=== PATIENT | female | born 1985 | race Caucasian/White ===

== ENCOUNTER → 2017-06-11 11:50 | Outpatient (CLI) | payer MEDICAID, SELFPAY ==
[2017-06-16 03:07] LABS: AFP MoM Value 1.18 (.); AFP Value-EIA 34.6 ng/mL (.); Comment Report (.); DIA MoM Value 0.75 (.); DIA Value-EIA 92.27 pg/mL (.); DSR (By Age) 518 (.); DSR (Second Trimester) 5014 (.); Gestat. Age Based On As provided (.); Gestational Age 17.9 WEEKS (.); Insulin Dep Diabetes No (.); Maternal Age At EDD 32.1 YEARS (.); hCG MoM 0.54 (.); hCG Value 10276 mIU/mL (.)
== END ==
PROVIDERS: Visit Provider Obstetrics & Gynecology
DX: O99.89 Other specified diseases and conditions complicating pregnancy, childbirth and the puerperium (principal); R30.0 Dysuria; Z3A.00 Weeks of gestation of pregnancy not specified
CPT/HCPCS: 36415; 82105; 82677; 84702; 86336; 87077; 87086; 87088; 87186

== ENCOUNTER → 2017-08-20 13:16 | Outpatient (CLI) | payer MEDICAID, SELFPAY ==
[2017-08-20 15:47] LABS: Hematocrit 33.9 % (37-47); Hemoglobin 11.1 g/dl (12.0-15.0); Mean Corp Hgb Conc 32.7 g/gl (32-36); Mean Corpuscular Hgb 29.5 pg (27.0-32.0); Mean Corpuscular Volume 90.2 fL (81-99); Mean Platelet Vol. 11.6 fl (6.2-12.0); Platelet Count 179 K/mm3 (150-450); RBC Distribution Width CV 13.5 % (11.6-14.6); RBC Distribution Width SD 44.2 fl (35.1-43.9); Red Blood Count 3.76 M/mm3 (4.2-5.4); White Blood Count 6.5 K/mm3 (4.4-11.0)
[2017-08-20 15:48] LABS: Scan Indicated on CBC? Y/N NO
[2017-08-20 15:55] LABS: Glucose Challenge Gest 1H 50g 151 mg/dL (70-140)
== END ==
PROVIDERS: Visit Provider Obstetrics & Gynecology
DX: Z34.82 Encounter for supervision of other normal pregnancy, second trimester (principal)
CPT/HCPCS: 36415; 82950; 85027

== ENCOUNTER → 2017-08-27 09:57 | Outpatient (CLI) | payer MEDICAID, SELFPAY ==
[2017-08-27 11:24] LABS: Glucose GTT-Gestation. Fasting 94 mg/dL (<105)
[2017-08-27 12:01] LABS: Glucose GTT-Gestational 1 Hr 194 mg/dL (<190)
[2017-08-27 13:02] LABS: Glucose GTT-Gestational 2 Hr 133 mg/dL (<165)
[2017-08-27 14:31] LABS: Glucose GTT-Gestational 3 Hr 53 L (<145)
== END ==
PROVIDERS: Visit Provider Obstetrics & Gynecology
DX: O24.912 Unspecified diabetes mellitus in pregnancy, second trimester (principal); Z3A.00 Weeks of gestation of pregnancy not specified
CPT/HCPCS: 36415; 82951; 82952

== ENCOUNTER 2017-11-06 05:33 | Inpatient (IN) | payer MEDICAID, SELFPAY ==
[2017-11-06] VITALS (15 sets, daily range): BP systolic 104–151; BP diastolic 60–82; PULSE 73–94; RESP 16–20; TEMP 35.8–36.6; O2SAT 95–100; BMI 52.6
[2017-11-06] MEDS: Lactated Ringers 1,000 ML 999 ML IV (05:55)
[2017-11-06 06:18] LABS: Absolute Lymphocyte Count 1.36 X10^3/ul (0.83-4.51); Absolute Neutrophil Count 5.8 X10^3/uL (2.0-7.7); Basophil# 0.02 X10^3/uL; Basophil% 0.3 % (0-1); Eosinophil# 0.05 X10^3/uL; Eosinophils% 0.6 % (0-5); Hematocrit 34.1 % (37-47); Hemoglobin 11.6 g/dl (12.0-15.0); Lymphocyte # 1.36 X10^3/ul (4.0); Lymphocyte % 17.5 % (19-41); Mean Corpuscular Hgb 30.1 pg (27.0-32.0); Mean Corpuscular Volume 88.6 fL (81-99); Monocyte% 6.4 % (0-10); Neutrophil # 5.82 X10^3/uL (2.7-7.7); Neutrophil % 74.9 % (47-70); Platelet Count 162 K/mm3 (150-450); RBC Distribution Width CV 13.9 % (11.6-14.6); RBC Distribution Width SD 44.5 fl (35.1-43.9); Red Blood Count 3.85 M/mm3 (4.2-5.4); White Blood Count 7.8 K/mm3 (4.4-11.0)
[2017-11-06 06:19] LABS: POSITIVE COUNT NO; POSITIVE DIFFERENTIAL NO; POSITIVE MORPHOLOGY NO
[2017-11-06 06:49] LABS: Partial Thromboplast Time 27.7 Seconds (24.1-36.2)
[2017-11-06] MEDS: Lactated Ringers 1,000 ML 150 ML IV (06:55)
[2017-11-06] MEDS: Sodium Citrate/Citric Acid 30 ML UDC PO (07:04)
--- NOTE | 2017-11-06 07:13 | PCM.DCCSEC ---
Discharge Diet: No Restrictions Discharge Activity: May not drive while taking narcotic pain medications., May Shower, May Take a Tub Bath May resume sexual activity in: 4-6 weeks Lifting Restrictions: 20 pounds Additional Activity Instructions:: Nothing in the vagina for 4-6 weeks. You may return to work/school in 6 weeks. Change Dressing in (Days):: 4 Remove Dressing in (days):: 4 Cleanse incision/area with: Soap & Water, Keep Dressing Clean & Dry Additional Instructions: If you experience any of the following, contact your healthcare provider. Bleeding that soaks a pad every hour for 2 hours Fever 100.4 or higher Unrelieved incision or abdominal pain Swelling, redness, discharge or bleeding from your incision Problems urinating (including inability to urinate or burning while urinating). Visual changes Severe headache Flu-like symptoms Pain or redness in one of both of your breasts Pain, warmth, tenderness or swelling in your legs, especially the calf area Frequent nausea and vomiting Symptoms of depression or anxiety If you experience any of the following, call 911 or go to the nearest Emergency Room. Chest pain Problems breathing Seizure activity Partial or complete paralysis of a body part, slurred speech, weakness or drooping of the face, or a sudden inability to walk or hold your balance Allergies/Adverse Reactions: Allergies paper tape Adverse Reaction (Mild, Uncoded 10/30/17 11:22) Rash adhesive tape Medications to take at Discharge Docusate Sodium [Colace] 100 mg PO BID PRN #30 cap 11/06/17 Naproxen [Naprosyn] 250 mg PO TID PRN #30 tab 11/06/17 Oxycodone [Oxyir] 5 - 10 mg PO Q6H PRN PRN 7 Days #28 tablet 11/06/17 The following prescriptions were given: Oxycodone [Oxyir] 5 - 10 mg PO Q6H PRN PRN 7 Days #28 tablet PRN Reason: Mod-Severe Pain (-01/30) Docusate Sodium [Colace] 100 mg PO BID PRN #30 cap PRN Reason: Constipation Naproxen [Naprosyn] 250 mg PO TID PRN #30 tab PRN Reason: Mild-Mod Pain (-08/30) Follow-Up: Call to make an appointment with your doctor for an incision check in 1-2 weeks. You will also need a 6 week post- follow up appointment. Test results from this visit will be discussed in further detail at your follow-up appointment, if applicable. Please Follow Up With: Devika Cloud MD - [phone] When: Call to make an appointment for an incision check in 2 weeks. Primary Care Physician: Care Physician,No Primary [Primary Care Provider] -
[2017-11-06] MEDS: Cefazolin 2 GM in 0.9% Normal Saline 100 ML IV (07:16)
--- NOTE | 2017-11-06 07:19 | DCINST_ITS ---
Discharge Diet: No Restrictions Discharge Activity: May not drive while taking narcotic pain medications., May Shower, May Take a Tub Bath May resume sexual activity in: 4-6 weeks Lifting Restrictions: 20 pounds Additional Activity Instructions:: Nothing in the vagina for 4-6 weeks. You may return to work/school in 6 weeks. Change Dressing in (Days):: 4 Remove Dressing in (days):: 4 Cleanse incision/area with: Soap & Water, Keep Dressing Clean & Dry Additional Instructions: If you experience any of the following, contact your healthcare provider. * Bleeding that soaks a pad every hour for 2 hours * Fever 100.4 or higher * Unrelieved incision or abdominal pain * Swelling, redness, discharge or bleeding from your incision * Problems urinating (including inability to urinate or burning while urinating) . * Visual changes * Severe headache * Flu-like symptoms * Pain or redness in one of both of your breasts * Pain, warmth, tenderness or swelling in your legs, especially the calf area * Frequent nausea and vomiting * Symptoms of depression or anxiety If you experience any of the following, call 911 or go to the nearest Emergency Room. * Chest pain * Problems breathing * Seizure activity * Partial or complete paralysis of a body part, slurred speech, weakness or drooping of the face, or a sudden inability to walk or hold your balance Allergies/Adverse Reactions: Allergies paper tape Adverse Reaction (Mild, Uncoded 10/30/17 11:22) Rash adhesive tape Medications to take at Discharge Docusate Sodium [Colace] 100 mg PO BID PRN #30 cap 11/06/17 Naproxen [Naprosyn] 250 mg PO TID PRN #30 tab 11/06/17 Oxycodone [Oxyir] 5 - 10 mg PO Q6H PRN PRN 7 Days #28 tablet 11/06/17 The following prescriptions were given: Oxycodone [Oxyir] 5 - 10 mg PO Q6H PRN PRN 7 Days #28 tablet PRN Reason: Mod-Severe Pain () Docusate Sodium [Colace] 100 mg PO BID PRN #30 cap PRN Reason: Constipation Naproxen [Naprosyn] 250 mg PO TID PRN #30 tab PRN Reason: Mild-Mod Pain () Follow-Up: Call to make an appointment with your doctor for an incision check in 1-2 weeks. You will also need a 6 week post- follow up appointment. Test results from this visit will be discussed in further detail at your follow- up appointment, if applicable. Please Follow Up With: Devika Cloud MD - [phone] When: Call to make an appointment for an incision check in 2 weeks. Primary Care Physician: Care Physician,No Primary [Primary Care Provider] -
--- NOTE | 2017-11-06 07:50 | FALS_PTH ---
PATIENT: JAMES PAZ LOC: [facility] U#:[id number] AGE/SX: 32/F ROOM: WP011 RE11/06/[address]: Dr. Devika Cloud MD : 1985 BED: 1 DIS: 11/07/2017 SPEC #: [id number] RECD: 11/06/17 13:48 STATUS: MANAN RERivera #: [id number] CADEN: 11/06/17 07:[address]: Devika Cloud DEPT: SURGICAL PATHOLOGY RECD BY: Luigi Dangelo ENTERED: 11/06/17 13:49 SP TYPE: FALL TUBES OTHR DR: No Primary Care Phys Tissues: Fallopian tube Procedures: Surgery Specimen Level II HEADER OPERATION: Repeat with tubal ligation PRE-OP DIAGNOSIS: Desires sterilization TISSUE SUBMITTED: Fallopian tubes, right tube has suture MICROSCOPIC DIAGNOSIS Right and left fallopian tubes, bilateral partial salpingectomies: Two complete segments of fallopian tubes with no pathologic change. SJ:mark anthony 11/07/17 MICROSCOPIC DESCRIPTION Slides are reviewed. GROSS DESCRIPTION Received is one container labeled with the patient's name and designated suture left fallopian tube. The specimen consists of two fallopian tubes with an average length of 1 cm and has a maximal diameter of 0.6 cm. Right fallopian tube is inked in black ink. No mass lesions are identified. Special Assets Officer sections are submitted in one cassette. / AM:mark anthony 11/06/17 TC:5 CPT: 24848 x2
[2017-11-06] MEDS: Oxytocin 30 units/NS 500 ml 30 UNITS/500 ML IV.SOLN 167 UNITS IV (07:51)
[2017-11-06] MEDS: Lactated Ringers 1,000 ML 100 ML IV ×3 (09:23→22:36)
[2017-11-06] MEDS: HYDROmorphone 1 MG/ML Syringe IV ×6 (10:10→22:34)
[2017-11-06] MEDS: Ketorolac 30 MG/ML Syringe IV ×2 (12:31→18:53)
--- NOTE | 2017-11-06 17:08 | PCM.OP.BLANK ---
Operative Report Date of Procedure: 11/06/17 PROCEDURE: Repeat C section. Bilateral partial salpingectomy Preoperative diagnosis: 39 wk EGA Prior C section, plans repeat Sterilization request Postop diagnosis: 39 wk EGA Prior C section, plans repeat Sterilization request Anesthesia: Spinal BIANCA Jones Surgeon: Devika Cloud MD Residential Sales Consultant: BIANCA Lynch EBL 800 cc Complications: none Drains: Wells draining clear yellow Fluids: replacement LR Findings: At amniotomy, clear amniotic fluid was noted. Peterson viable male in vertex presentation. Apgars 8/9, Baby weight 7# 11 oz. There were normal appearing fallopian tubes and ovaries bilaterally, and a normal appearing uterus . Dense adhesions were noted at the anterior abdominal wall layers. Filmy adhesions along uterus, bladder and lower uterine segment. PATH: bilateral tubal segments and cord gases to Pathology lab Narrative account: After the risks, benefits and alternatives of the procedure were reviewed with the patient, informed consent was obtained. The patient was taken to the Operating room with an IV running, and placed in a seated position on the operating table for placement of the spinal. Once the spinal had been administered, she was briefly frog-legged for Wells catheter placement, and then repositioned to dorsal supine position with leftward displacement of the uterus. Retraction straps were placed on the abdomen to expose the prior incision. She was prepped and draped in the usual sterile fashion. Once the spinal was deemed adequate, a Pfannenstiel skin incision was created using the knife through the prior incision. The incision was carried down to the rectus fascia using the knife. The fascia was nicked in the midline. The fascial incision was extended bilaterally using curved Santiago scissors. The superior aspect of the fascial incision was grasped with Macy clamps and tented up and the underlying rectus abdominal muscles were dissected free. Dense adhesions were noted at this layer. In a similar manner, the inferior aspect of the facial incision was grasped with Macy clamps tented up and the underlying rectus abdominal muscles were dissected free. The rectus abdominis muscles were in the midline and the peritoneum was identified and entered by blunt dissection high in the incision. Using the magnetometer operator's fingertips to guide dissection and Metzenbaum scissors the peritoneal incision was extended superiorly and then inferiorly The peritoneum was stretched laterally and a bladder blade was inserted. Filmy adhesions were taken down along the lower uterine segment and the bladder was pushed down off the uterus. The uterine incision was then created using Metzenbaum scissors. The operators fingertips were used to extend the uterine incision by blunt dissection in a caudad- cephalad orientation . Clear fluid was noted at amniotomy. The buttocks were then delivered through the incision. And the baby was delivered up to the shoulders. The arms were reduced and the head was then delivered by maintaining flexion of the neck. The was then delivered easily onto the abdomen. The OP and nares were bulb suctioned on the abdomen. The cord was clamped x two and cut. And the infant was handed off to the nurse awaiting delivery after briefly showing him to his mother and father. The baby had a spontaneous, vigorous cry. The umbilical cord was doubly clamped. The placenta was then delivered. The uterus was exteriorized and cleared of clots and debris . The uterine incision was repaired with 1 Vicryl in a running locked fashion. The R fallopian tube was grasped with a Rima clamp at a relatively avascular midportion. A window was created in the mesosalpinx with Bovie cautery and the proximal and distal ends of the fallopian tube at this window were tied off. A knuckle of the fallopian tube was tented up and another free tie was placed inferior to the other ties. The segment of the fallopian tube was excised and set aside for pathology review. Bovie cautery was used to cauterize the tubal stumps. The L fallopian tube partial salpingectomy was then performed in a similar manner. At this point the uterus was returned to the abdominal cavity. The gutters were cleared of clots and debris and the incision at the uterus was inspected. A second imbricating layer was then placed, using 1 Monocryl in running nonlocked fashion. Several horizontal mattress stitches of 1 Vicryl and figure of eight stitches were placed along the incision for hemostasis. Bovie cautery was used for hemostasis along the serosa. Thalia was then dusted over the incision. Adequate hemostasis was noted. A FISH retractor was placed into the abdomen to keep bowel and omentum out of harm's way with the rest of the closure There awas brisk bleeding noted from the rectus abdominis muscle body (a rent at that location) high at the R rectus body. This area was oversewn for hemostasis with a figure of eight suture of 1- Vicryl. Excellent hemostasis was noted. The peritoneal edges and rectus abdominis muscles were reapproximated in the midline with 1 Vicryl . Excellent hemostasis was noted at the subfascial space. Thalia was dusted along this layer. The fascia was then closed in a running nonlocked fashion with a Stratofix suture. The Subcutaneous fatty tissue was Bovie cauterized as needed for hemostasis. Thalia was liberally dusted at this layer to prevent seroma formation. This layer was then reapproximated with a single layer of running 3-0 Vicryl to eliminate space. Additional interrupted stitches of 3-0 Vicryl were placed to more closely reapproximate the skin edges. The skin edges were closed in a Subcuticular stitch of 4-0 Monocryl. The incision was cleansed. Cavilon, Steristrips, and a silver Mepilex dressing were then applied. The patient was then transferred to the recovery room bed in stable condition after tolerating the procedure well. Sponge, lap, needle and instrument counts correct times two. Medications given preop and intraoperatively included: Ancef 3 gm given transportation superintendent to the operating room. The patient also received Pitocin given IV after cord clamp, and Toradol 30 mg IV times one. Due to her BMI, no Duramorph was given. For a complete listing of medications given preop and intraoperatively, please see the anesthesia record.
[2017-11-07 01:00] VITALS: BP 127/74; PULSE 89; RESP 18; TEMP 36.1; O2SAT 96
[2017-11-07] MEDS: Ketorolac 30 MG/ML Syringe IV ×2 (01:11→06:49)
[2017-11-07] MEDS: Acetaminophen 500 MG Tablet 1000 MG PO ×2 (01:19→10:39)
[2017-11-07 04:25] VITALS: BP 124/76; PULSE 83; RESP 16; TEMP 36.3; O2SAT 97
[2017-11-07] MEDS: HYDROmorphone 1 MG/ML Syringe IV (04:28)
[2017-11-07 07:41] LABS: Hematocrit 28.8 % (37-47); Hemoglobin 9.6 g/dl (12.0-15.0); Mean Corp Hgb Conc 33.3 g/gl (32-36); Mean Platelet Vol. 11.3 fl (6.2-12.0); Platelet Count 136 K/mm3 (150-450); RBC Distribution Width CV 14.5 % (11.6-14.6); RBC Distribution Width SD 47.7 fl (35.1-43.9); White Blood Count 6.4 K/mm3 (4.4-11.0)
[2017-11-07 07:44] LABS: Scan Indicated on CBC? Y/N NO
[2017-11-07] MEDS: oxyCODONE 5 MG Tablet PO ×2 (08:03→12:05)
[2017-11-07] MEDS: Senna/Docusate Sodium 1 Tablet PO (08:04)
[2017-11-07 08:15] VITALS: BP 125/65; PULSE 87; RESP 18; TEMP 36.1; O2SAT 97
--- NOTE | 2017-11-07 08:23 | PCM.PN.OB ---
Subjective: POD#1 Repeat C/S and BPS States sleepy and has not been able to sleep here. Would like to go home and states it's actually easier with the kids at home. Breast feeding and baby has wanted to nurse all night. Pain control OK now. Iniitally had to catch up on it with Dilaudid IV. IV to S/L and has been getting Toradol also. - Physical Exam General: Alert, Oriented x3, Cooperative, No apparent distress HEENT: Atraumatic Neck: Supple Abdomen: Soft, Obese - Fundus firm at approx umbilicus. Tender c/w postop status Skin: Incision - Silver mepilex dressing intact. appears dry. Neurological: Cranial nerves II-XII grossly intact Psych/Mental Status: Normal Affect Vital Signs Temp Pulse Resp BP Pulse Ox 97.0 F L 87 18 125/65 H 97 /18/18 08:15 1818 08:15 18 08:15 18 08:15 11/07/17 08:15 Oxygen Delivery Method Room Air Weight: 139 kg Body Mass Index (BMI) 52.6 Intake and Output for Last 24 Hours 07/16/18 07/17/18 /18/18 23:59 23:59 23:59 Intake Total 2700 / 2700 1350 / 1350 Output Total 200 / 200 1200 / 1200 Balance 2500 / 2500 150 / 150 Laboratory Tests Past 24 Hrs /18/18 07:17 WBC 6.4 RBC 3.20 L Hgb 9.6 L Hct 28.8 L MCV 90.0 MCH 30.0 MCHC 33.3 RDW 14.5 RDW Differential 47.7 H Plt Count 136 L MPV 11.3 Medical Necessity - Tobacco Use Smoking Status: Former smoker Assessment/Plan POD#1 Repeat C/S and BPS Doing well. Poor sleep. Requesting to go home today. Advised MAY be able to go home, but will need to have pain controlled by PO meds only. Inc diet and activity as tolerated. Wells out for voiding trial OK to dischg today if criteria met RTO in 2 wk for postop follow up appt.
[2017-11-07 12:45] VITALS: BP 119/72; PULSE 82; RESP 16; TEMP 36.1; O2SAT 97
[2017-11-07] MEDS: Naproxen 250 MG Tablet PO (13:07)
[2017-11-08 13:07] LABS: Pathology Specimen OB SEE PATHOLOGY REPORT
== END 2017-11-07 13:20 | disposition home or self-care (01) | DRG 371 ==
PROVIDERS: Admitting Provider Obstetrics & Gynecology; Visit Provider Obstetrics & Gynecology
PROC: 10D00Z1 Extraction of Products of Conception, Low, Open Approach (ICD-10-PCS; CPT 59514; principal; 2017-11-06 07:15)
DX: O34.211 Maternal care for low transverse scar from previous cesarean delivery (principal); O99.62 Diseases of the digestive system complicating childbirth; K21.9 Gastro-esophageal reflux disease without esophagitis; O99.214 Obesity complicating childbirth; E66.9 Obesity, unspecified; Z68.43 Body mass index [BMI] 50.0-59.9, adult; Z3A.39 39 weeks gestation of pregnancy; Z37.0 Single live birth; Z30.2 Encounter for sterilization; Z87.891 Personal history of nicotine dependence; Z87.59 Personal history of other complications of pregnancy, childbirth and the puerperium
CPT/HCPCS: 85025; 85027; 85730; 86850; 86900; 88302; 99218; J7120; G0378; J2405